=== PATIENT | female | born 1965 | race Caucasian/White ===

== ENCOUNTER 2019-12-13 10:45 | Outpatient (CLI) | payer OTHER, SELFPAY ==
--- NOTE | ~2019-12-13 | MM_ITS ---
EXAMINATION: MM screening demario BI w lito HISTORY: Screening mammogram TECHNIQUE: Craniocaudal and mediolateral oblique 3-D tomosynthesis images were obtained and synthetic 2-D images were generated. CAD analysis was submitted and interpreted. COMPARISON: Comparison to multiple prior studies sequentially, with oldest reviewed study dated 05/05. BREAST PARENCHYMAL COMPOSITION: There are scattered areas of fibroglandular density. FINDINGS: There is no evidence of suspicious mass, calcification, or architectural distortion to sugg est malignancy in either breast. There has been no suspicious interval change. IMPRESSION: 1. No mammographic evidence of malignancy. 2. Recommend routine screening mammography in one year. BI-RADS Category 1: Negative Reviewed, dictated and finalized at location A. OR CONTACT CENTRE MANAGER
== END 2019-12-13 10:46 | disposition home or self-care (01) ==
LOC: ANHIMG 10:47
PROVIDERS: PCP Internal Medicine; Visit Provider Obstetrics & Gynecology
DX: Z12.31 Encounter for screening mammogram for malignant neoplasm of breast (principal)
CPT/HCPCS: 77063; 77067

== ENCOUNTER 2020-02-15 13:53 | Outpatient (CLI) | payer OTHER, SELFPAY ==
--- NOTE | ~2020-02-15 | XR_ITS ---
XR sacroiliac joints min 3V DATE: 02/15/2020 14:55 INDICATION: Chronic low back pain TECHNIQUE: AP and bilateral oblique views COMPARISON: None FINDINGS: No fracture, dislocation, erosion or ankylosis at the sacroiliac joints. IMPRESSION: Negative Reviewed, dictated and finalized at Location A. Reviewed, dictated and finalized at location A. IMPRESSION: Negative
--- NOTE | ~2020-02-15 | XR_ITS ---
XR lumbar spine 2-3V DATE: 02/15/2020 14:55 INDICATION: Low back pain TECHNIQUE: AP, lateral, coned lateral lumbosacral views COMPARISON: 11/05/2010 MRI lumbar spine 04/05/2014 FINDINGS: Diffuse osteopenia. Normal alignment of the lumbar spine. No fracture or bone destruction. The included T11 and T12 and l umbar pedicles are intact. No spondylolisthesis. There is moderate loss of interspace height at L4-5. Remaining lumbar interspaces are relatively pres erved. The sacroiliac joints are unremarkable. IMPRESSION: Osteopenia Moderate loss of height of L4-5 interspace Reviewed, dictated and finalized at location A.
== END 2020-02-15 13:54 | disposition home or self-care (01) ==
LOC: CHSIMG 13:55
PROVIDERS: PCP Internal Medicine; Visit Provider Internal Medicine
DX: M54.5 Low back pain (principal)
CPT/HCPCS: 72100; 72202

== ENCOUNTER 2020-03-26 13:20 | Outpatient (CLI) | payer OTHER, SELFPAY ==
[2020-03-26 13:33] LABS: Hematocrit 37.9 % (35.0-49.0); Hemoglobin 12.8 g/dL (12.0-15.0); Mean Corpuscular HGB Conc 33.8 g/dL (32.0-36.0); Mean Corpuscular Volume 91.8 fL (78.0-102.0); Platelet Count Result 192 K/mm3 (150-420); Red Blood Count 4.13 M/mm3 (4.20-5.40); Red Cell Distribution Width 13.2 % (11.6-14.4); White Blood Count 3.7 K/mm3 (4.8-10.8)
[2020-03-26 13:34] LABS: Add Urine Microscopic? NO; Appearance Urine Clear (Clear); Bilirubin Urine Negative (Negative); Blood Urine Negative (Negative); Color Urine Yellow (Yellow); Glucose Urine UA Negative (Negative); Ketones Urine Negative (Negative); Leukocyte Esterase Ur Negative (Negative); Nitrate Urine Negative (Negative); Protein Urine Negative (Negative); Specific Grav Ur <= 1.005 (1.010-1.020); Urobilinogen Urine 0.2 mg/dL (0.2-1.0); pH Urine 5.5 (5.0-8.0)
[2020-03-26 13:48] LABS: Alanine Aminotransferase 34 U/L (14-59); Albumin Level 3.5 g/dL (3.4-5.0); Alkaline Phosphatase 52 U/L (46-116); Amylase 34 U/L (25-115); Anion Gap 9.4 mmol/L (7-16); Aspartate Amino Transferase 33 U/L (15-37); Bilirubin,Total 0.5 mg/dL (0.00-1.00); Blood Urea Nitrogen 6 mg/dL (7-18); Carbon Dioxide 31 mmol/L (21-32); Chloride 101 mmol/L (98-108); Estimated Glomerular Filt Rate > 60; Glucose 103 mg/dL (70-99); Lipase 97 U/L (73-393); Osmolality Calculated 283 mOsm/kg (285-295); Potassium 3.4 mmol/L (3.5-5.1); Sodium 138 mmol/L (136-145); Total Protein 6.8 g/dL (6.4-8.2)
[2020-03-26 13:53] LABS: Calcium 8.3 mg/dL (8.5-10.1)
[2020-03-26 14:14] LABS: Band Neutrophils Percent 1 % (0-6); Basophils Percent Manual 0 % (0-1); Eosinophils Absolute Manual 0.03 K/mm3 (0.02-0.5); Eosinophils Percent Manual 1 % (1-6); Lymphocytes Absolute Manual 0.88 K/mm3 (1.1-4.5); Lymphocytes Percent Manual 24 % (18-44); Monocytes Absolute Manual 0.25 K/mm3 (0.1-0.90); Monocytes Percent Manual 7 % (3-9); Neutrophils Absolute Manual 2.51 K/mm3 (1.7-7.2); Neutrophils Percent Manual 67 % (46-73); Platelet Estimate Adequate (Adequate); Total Cells Counted 100
== END 2020-03-26 13:21 | disposition home or self-care (01) ==
LOC: CHSLAB 13:22
PROVIDERS: PCP Internal Medicine; Visit Provider Internal Medicine
DX: R10.9 Unspecified abdominal pain (principal); R11.0 Nausea
CPT/HCPCS: 36415; 80053; 81003; 82150; 83690; 85025

== ENCOUNTER 2020-04-03 07:57 | Outpatient (CLI) | payer OTHER, SELFPAY ==
--- NOTE | ~2020-04-03 | US_ITS ---
EXAMINATION: US right upper quadrant DATE: 04/03/2020 08:55 INDICATION: Right upper quadrant pain TECHNIQUE: Multiple grayscale and Doppler ultrasound images of the abdomen were obtained. COMPARISON: None available FINDINGS: The head and and body of the pancreas are normal. The pancreatic tail is obscured by bowel gas. The liver is normal with normal echogenicity and echotexture. No surface nodularity. Normal hepa topetal flow in the main portal vein. The gallbladder is normal with no abnormal wall thickening, per icholecystic fluid or stones. The normal common bile duct measures 4 mm. There was no sonographic Mur phy sign. IMPRESSION: 1. Normal sonographic study of the gallbladder. Reviewed, dictated and finalized at location A.
== END 2020-04-03 07:58 | disposition home or self-care (01) ==
PROVIDERS: PCP Internal Medicine; Visit Provider Internal Medicine
DX: K30 Functional dyspepsia (principal); R10.11 Right upper quadrant pain; R11.0 Nausea
CPT/HCPCS: 76705

== ENCOUNTER → 2020-04-11 14:08 | Outpatient (CLI) | payer OTHER, SELFPAY ==
--- NOTE | ~2020-04-11 | MR_ITS ---
EXAMINATION: MR lumbar spine wo con EXAM DATE: 04/11/2020 15:03 INDICATION: Low back pain. TECHNIQUE: Multi-sequential, multiplanar MR images of the lumbar spine were obtained without contrast . Sagittal T1, T2, T2 fat saturation images. Axial T2 weighted images. Comparison is made to prior examination from 04/05/2014. FINDINGS: There is mild to moderate disc disease L4-5, mild at the other lumbar levels. 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 The conus medullaris terminates at the T12-L1 level and has normal signal intensity and morphology. The vertebral bodies are aligned in the AP dimension. There are no suspic ious marrow signal abnormalities. Level by level evaluation: T12-L1: Disc does not extend beyond the endplate margin. Facet arthropathy: None. Neural foraminal stenosis: No stenosis. Central canal stenosis: No stenosis. L1-L2: There is a mild diffuse disc bulge. Facet arthropathy: Mild. Neural foraminal stenosis: No stenosis. Central canal stenosis: No stenosis. L2-L3: There is a mild diffuse disc bulge. Facet arthropathy: Mild. Neural foraminal stenosis: No stenosis. Central canal stenosis: No stenosis. L3-L4: There is a mild diffuse disc bulge. Facet arthropathy: Mild. Neural foraminal stenosis: No stenosis. Central canal stenosis: No stenosis. L4-L5: There is a mild diffuse disc bulge superimposed moderate-sized central extrusion, inferior teresita ration. Facet arthropathy: Mild. Neural foraminal stenosis: Mild bilateral. Central canal stenosis: Mild. L5-S1: There is a mild diffuse disc bulge. Facet arthropathy: Mild. Neural foraminal stenosis: Mild bilateral. Central canal stenosis: No stenosis. Compared to 2013, disc disease, protrusion at L4-5 has developed, mild progression in overall mild bridger mbar spondylosis. IMPRESSION: Mild lumbar spondylosis. Reviewed, dictated and finalized at location A. IMPRESSION: Mild lumbar spondylosis.
== END ==
PROVIDERS: PCP Internal Medicine; Visit Provider Internal Medicine
DX: M54.5 Low back pain (principal); M47.816 Spondylosis without myelopathy or radiculopathy, lumbar region
CPT/HCPCS: 72148

== ENCOUNTER 2020-04-29 14:50 | Outpatient (RCR) | payer OTHER, SELFPAY ==
--- NOTE | 2020-04-29 15:53 | PTOPEVAL ---
Thank you for referring Patricia Cabrera to [facility]. Please review, sign, date and return this plan of care NOBLE. I agree with and certify that the following plan of care is medically necessary. Referring Physician Date Admitting Provider: Attending Provider: PHYSICIAN NOT ON STAFF Referring Provider: *PT Outpatient Evaluation Start: 04/29/20 15:00 Freq: Status: Active Protocol: Document 04/29/20 15:05 JTF (Rec: 04/29/20 15:50 [facility] [id number]) Therapy Assessment Status Assessment Status Assessment Status Evaluation Evaluation Information Problem Diagnosis lumbar spondylosis Onset 04/24/20 Additional Evaluation Detail oswestry = 22% functionally declined Subjective Information patient reports she has been Query Text:As Reported By Patient/ having pain in the back off Family and on for years. she reports she currently does not have pain. she reports she will get to a point with pain that she is unable to stand or move. she reports she is hoping to get some exercises from therapy to improve her core strength and hel prevent severity/frequency of future back pain. she reports she has had an mri of the lumbar spine with results of mild lumbar spondylosis. she reports she never has pain down the legs. Prior Level of Function Comments Additional Prior Level of Function she reports she has pain that Comments has been on and off for years, but reports she is having more frequent bout of severe pain. she reports she reports has freqently had her bouts of increased pain with bending and twisting motions. Pain Assessment Timing of Pain Assessment Timing of Pain Assessment Assessment Pain Scale Pain Scale Used Numeric (1 - 10) Self Report Pain Assessment Lower Back Reported Pain Level 0 Lowest Pain Intensity 0 Greatest Pain Intensity 0 Pain Aggravating Factors Exercise/Activity,Lifting Pain Score Pain Score 0: Self Report Cervical and Lumbar ROM Lumbar ROM Lumbar Flexion Active Ankle Query Text:Hands to:
--- NOTE | 2020-07-25 11:00 | PCPTNOTE ---
07/25/20 - patient has been called and reports they would like to end therapy. at this time, their progress towards goals will be taken from the most recent evaluation/note. RobertTF
== END 2020-05-14 15:25 | disposition home or self-care (01) ==
LOC: CHSPT 14:50
PROVIDERS: PCP Internal Medicine
DX: M47.816 Spondylosis without myelopathy or radiculopathy, lumbar region (principal)
CPT/HCPCS: 97110; 97161

== ENCOUNTER 2020-08-22 14:49 | Outpatient (CLI) | payer OTHER, SELFPAY ==
[2020-08-22] MEDS: ZOLEDRONIC ACID 5 MG/100 ML 100 ML 400 MG IVPB (15:23)
== END 2020-08-22 14:50 | disposition home or self-care (01) ==
LOC: CHSTREATRM 14:51
PROVIDERS: PCP Internal Medicine; Visit Provider Internal Medicine
DX: M81.0 Age-related osteoporosis without current pathological fracture (principal)
CPT/HCPCS: 96365; J3489

== ENCOUNTER 2021-01-27 15:35 | Outpatient (CLI) | payer OTHER, SELFPAY ==
--- NOTE | ~2021-01-27 | MM_ITS ---
EXAMINATION: MM screening demario BI w lito HISTORY: Screening TECHNIQUE: Craniocaudal and mediolateral oblique 3-D tomosynthesis images were obtained and synthetic 2-D images were generated. CAD analysis was submitted and interpreted. COMPARISON: Comparison to multiple prior studies sequentially, with oldest reviewed study dated 12/2015. BREAST PARENCHYMAL COMPOSITION: Breast composed of scattered areas of fibroglandular density FINDINGS: There is developing focal asymmetry in the upper outer quadrant of the right breast anterio rly. The left breast is stable without evidence for malignancy. IMPRESSION: 1. Developing right breast asymmetry. 2. Additional mammographic views and possible breast ultrasound are recommended. BI-RADS Category 0: Incomplete: Needs additional imaging evaluation. Reviewed, dictated and finalized at location A. IMPRESSION: 1. Developing right breast asymmetry. 2. Additional mammographic views and possible breast ultrasound are recommended . BI-RADS Category 0: Incomplete: Needs additional imaging evaluation.
== END 2021-01-27 15:36 | disposition home or self-care (01) ==
LOC: ANHIMG 15:37
PROVIDERS: PCP Internal Medicine; Visit Provider Obstetrics & Gynecology
DX: Z12.31 Encounter for screening mammogram for malignant neoplasm of breast (principal); R92.8 Other abnormal and inconclusive findings on diagnostic imaging of breast
CPT/HCPCS: 77063; 77067

== ENCOUNTER 2021-01-30 10:16 | Outpatient (CLI) | payer OTHER, SELFPAY ==
--- NOTE | ~2021-01-30 | MMUS_ITS ---
EXAMINATION: MM diagnostic mammo unilat RT, US breast RT limited HISTORY: Follow-up right breast asymmetry TECHNIQUE: Additional 3-D tomosynthesis images of the right breast were performed and synthetic 2-D i mages were generated. CAD analysis was submitted and interpreted. High resolution Limited right breas t ultrasound was performed. COMPARISON: 01/27/2021 BREAST PARENCHYMAL COMPOSITION: Breast composed of scattered areas of fibroglandular density. FINDINGS: MAMMOGRAPHIC FINDINGS: Focal asymmetry laterally in the right breast is less dense with spot part compression views. No disc rete mass, architectural distortion or suspicious calcifications are identified to suggest malignancy . ULTRASOUND: Limited right breast ultrasound: Normal heterogeneous echotexture without focal solid or cystic mass. There are mildly prominent ducts of the right breast. IMPRESSION: 1. No evidence for malignancy in the right breast. 2. Routine yearly screening mammogram and regular clinical breast examination are recommended. BI-RADS Category 1: Negative Reviewed, dictated and finalized at location A. IMPRESSION: 1. No evidence for malignancy in the right breast. 2. Routine yearly screening mammogram and regular clinical breast examination a re recommended. BI-RADS Category 1: Negative
== END 2021-01-30 10:17 | disposition home or self-care (01) ==
LOC: CHSIMG 10:19
PROVIDERS: PCP Internal Medicine; Visit Provider Obstetrics & Gynecology
DX: R92.8 Other abnormal and inconclusive findings on diagnostic imaging of breast (principal)
CPT/HCPCS: 76642; 77065

== ENCOUNTER → 2021-08-03 07:44 | Outpatient (CLI) | payer OTHER, SELFPAY ==
--- NOTE | ~2021-08-03 | MR_ITS ---
EXAMINATION: MR hip RT wo con DATE: 08/03/2021 08:45 INDICATION: Right hip pain. Enlarging simple on the right buttock. TECHNIQUE: Magnetic resonance imaging (MRI) of the right hip was performed without intravenous contr ast. Sequences included full-field axial PD-weighted FS FSE and T1-weighted FSE, coronal of the pelvi s with PD-weighted FS FSE, small field of view of the right hip with axial PD-weighted FS FSE, sagit mario alberto PD-weighted FS FSE and coronal PD weighted FS FSE. Additional radial T1-weighted FGR oriented ort hogonal to the acetabular rim were obtained for evaluation of the labrum. COMPARISON: None FINDINGS: Bones/labrum/cartilage: Alignment is normal. No fracture, avascular necrosis or pathologic marrow replacing process. Mild ri ght hip osteoarthritis with mild partial-thickness cartilage loss with smooth chondral surface result ing in mild nonuniform joint space narrowing anterosuperiorly and posteriorly. Mild degeneration of t he posterior superior glenoid labrum which demonstrates mild amorphous increased signal without discr ete linear fluid signal intensity tear plane. Moderate disc height loss at L4-L5 and mild lower lumba r facet osteoarthritis. Fluid: Symmetric physiologic amount of fluid within both hip joints. Soft tissues: Normal and symmetric muscle bulk and signal in the pelvis and visualized proximal thighs. Mild tendin opathy without discrete tear at the distal right gluteus minimus tendon. The iliopsoas tendons, proxi mal hamstring tendons and remaining bilateral gluteal tendons are normal. Limited evaluation of visce ral organs of the pelvis is unremarkable. No pathologically enlarged pelvic/inguinal lymphadenopathy . There is an approximately 2.2 x 1.2 x 1.8 cm region of intermediate T1 and increased T2 signal with spiculated margins in the superficial subcutaneous fat at the right buttock. There is asymmetric dec rease in the amount of subcutaneous fat at this location relative to the contralateral left buttock a long with overlying mild improvement of the overlying skin surface corresponding to the provided clin ical history. IMPRESSION: 1. 2.2 x 1.2 x 1.8 cm region of soft tissue with spiculated margins replacing the superficial subcuta neous fat at the region of concern. Suspected this represents scarring related to localized fat necro sis although neoplasm either benign or malignant cannot be excluded and would consider biopsy for def initive determination. 2. Mild right hip osteoarthritis with mild degeneration at the posterior superior right acetabular la hugo. 3. Mild right gluteus minimus tendinopathy without discrete tear. 4. Mild to moderate lower lumbar spondylosis. Reviewed, dictated and finalized at location A. IMPRESSION: 1. 2.2 x 1.2 x 1.8 cm region of soft tissue with spiculated margins replacing t he superficial subcutaneous fat at the region of concern. Suspected this repres ents scarring related to localized fat necrosis although neoplasm either benign or malignant cannot be excluded and would consider biopsy for definitive deter mination. 2. Mild right hip osteoarthritis with mild degeneration at the posterior superi or right acetabular labrum. 3. Mild right gluteus minimus tendinopathy without discrete tear. 4. Mild to moderate lower lumbar spondylosis.
== END ==
PROVIDERS: PCP Internal Medicine; Visit Provider Internal Medicine
DX: M79.89 Other specified soft tissue disorders (principal); M47.896 Other spondylosis, lumbar region; M16.11 Unilateral primary osteoarthritis, right hip
CPT/HCPCS: 73721

== ENCOUNTER 2021-09-18 07:44 | Outpatient (CLI) | payer OTHER, SELFPAY ==
[2021-09-18 10:04] LABS: SARS-CoV-2 RNA PCR Negative (Negative)
== END 2021-09-18 07:45 | disposition home or self-care (01) ==
LOC: CHSLAB 07:50
DX: Z01.812 Encounter for preprocedural laboratory examination (principal); Z20.822 Contact with and (suspected) exposure to COVID-19
CPT/HCPCS: C9803; U0003; U0005

== ENCOUNTER 2022-02-02 10:06 | Outpatient (CLI) | payer OTHER, SELFPAY ==
--- NOTE | ~2022-02-02 | MM_ITS ---
EXAMINATION: MM screening demario BI w lito HISTORY: Screening mammogram TECHNIQUE: Craniocaudal and mediolateral oblique 3-D tomosynthesis images were obtained and synthetic 2-D images were generated. CAD analysis was submitted and interpreted. COMPARISON: January 30, 2021 diagnostic right mammogram and limited right breast ultrasound January 27, 2021 bilateral screening mammogram December 13, 2019 bilateral screening mammogram December 07, 2018 bilateral screening mammogram BREAST PARENCHYMAL COMPOSITION: There are scattered areas of fibroglandular density. FINDINGS: There is no evidence of suspicious mass, calcification, or architectural distortion to sugg est malignancy in either breast. There has been no suspicious interval change. IMPRESSION: 1. No mammographic evidence of malignancy. 2. Recommend routine screening mammography in one year. BI-RADS Category 1: Negative Reviewed, dictated and finalized at location A.
--- NOTE | ~2022-02-02 | DEXA_ITS ---
Bone Density Report Name: VANIA WEBB Age: 56 Sex: Female Ethnicity: White Date of : 1965 Indication: postmenopausal; screening for osteoporosis; height loss; Referring Provider: Pascual Prince Study: Bone densitometry was performed. Exam Date: February 02, 2022 Accession number: [id number] Bone Density: Region BMD T-score Z-score Classification AP Spine(L1-L4) 0.815 -2.1 -0.8 Osteopenia Femoral Neck (Left) 0.577 -2.4 -1.2 Osteopenia Total Hip (Left) 0.694 -2.0 -1.2 Osteopenia Femoral Neck (Right) 0.607 -2.2 -1.0 Osteopenia Total Hip (Right) 0.736 -1.7 -0.8 Osteopenia Femoral Neck Mean 0.592 -2.3 -1.1 Osteopenia Total Hip Mean 0.715 -1.9 -1.0 Osteopenia World Health Organization criteria for BMD impression classify patients as: Normal (T-score at or above -1.0), Osteopenia (T-score between -1.0 and -2.5), or Osteoporosis (T-score at or below -2.5). 10-year Fracture Risk(1): Major Osteoporotic Fracture 9.2% Hip Fracture 1.6% Reported Risk Factors: [place] (), Neck BMD=0.577, BMI=20.6 (1) FRAX(R) Version 3.08. Fracture probability calculated for an untreated patient. Fracture probability may be lower if the patient has received treatment. Clinical Information Provided by Patient: Patient maximum height was 66 Menopause Age: 48 Drinks caffeinated beverages Onset of menses at age 9 Number of children 3 Impression: The patient has low bone mass, based on the Left Femoral Neck T-score. Discussion: BONE DENSITY IS LOW AT ONE OR MORE SKELETAL SITES. This patient's lowest T-score is low at one or more skeletal sites. It meets the World Health Organization's (WHO) criteria for ?low bone mass? (T-score between -1.0 and -2.5). The patient's 10-year risk of fracture as calculated by FRAX is less than the threshold where pharmacological therapy is recommended by the National Osteoporosis Foundation (NOF). However, all treatment decisions require clinical judgment and consideration of individual patient factors, including patient preferences, comorbidities, previous drug use, risk factors not captured in the FRAX model (e.g., frailty, falls, vitamin D deficiency, increased bone turnover, interval significant decline in bone density) and possible under or overestimation of fracture risk by FRAX. The patient should follow a healthful lifestyle (good nutrition with adequate calcium and vitamin D, and appropriate weight-bearing exercise). Follow-Up: Consider repeating this study in 2 to 3 years to reassess this patient's status, or sooner if there is some new clinical indication. Reported by: Dr. Rishabh Morris on 02/02/2022 10:43:00 AM. Reviewed, dictated and finalized at location A. [facility]
== END 2022-02-02 10:07 | disposition home or self-care (01) ==
LOC: CHSIMG 10:09
PROVIDERS: PCP Internal Medicine; Visit Provider Obstetrics & Gynecology
DX: Z12.31 Encounter for screening mammogram for malignant neoplasm of breast (principal); M81.0 Age-related osteoporosis without current pathological fracture
CPT/HCPCS: 77063; 77067; 77080

== ENCOUNTER 2022-04-30 09:17 | Outpatient (CLI) | payer OTHER, SELFPAY ==
--- NOTE | ~2022-04-30 | MR_ITS ---
EXAMINATION: MR lumbar spine wo con DATE: 04/30/2022 10:02 INDICATION: Lumbar radiculopathy TECHNIQUE: Magnetic resonance imaging (MRI) of the lumbar spine was performed without intravenous con trast. Sequences included sagittal T2-weighted FSE, sagittal T2-weighted FS FSE, sagittal T1-weighted FSE, and axial T2-weighted FSE. COMPARISON: 04/11/20 FINDINGS: 2 mm retrolisthesis L4 on L5 and one-2 mm retrolisthesis L2 on L3 and L3 on L4. Vertebral body height s are normal. Normal marrow signal. Moderate disc height loss at L4-L5. Mild disc height loss at L3- L4 and L5-S1. Minimal disc height loss at L2-L3. The conus medullaris terminates at L1. There is norm al signal in the caudal spinal cord. Paravertebral soft tissues are unremarkable. The following disc levels are specifically discussed: T12-L1: The disc does not extend beyond the endplate margin. There is minimal bilateral facet joint o steoarthritis. There is no neural foraminal stenosis. There is no central canal stenosis. L1-L2: Disc is mildly bulging. There is mild bilateral facet joint osteoarthritis. There is no neural foraminal stenosis. There is minimal central canal stenosis. L2-L3: Disc is mildly bulging with superimposed annular fissure and small central disc extrusion exte nding 6 mm cephalad to the level of the inferior endplate of L1 There is mild right and minimal left facet joint osteoarthritis. There is no neural foraminal stenosis. There is minimal central canal li nosis. L3-L4: Disc is mildly bulging with annular fissure There is minimal bilateral facet joint osteoarthri tis. There is no neural foraminal stenosis. There is minimal central canal stenosis. L4-L5: Disc is bulging with annular fissure and very small central disc extrusion with disc material extending 3 mm caudal to the level of the superior endplate of L5. This significantly decreased since the prior study at which time the disc material extending up to 1.3 similar caudal to the level of t he superior endplate of L5 There is mild bilateral facet joint osteoarthritis. There is mild bilatera l neural foraminal stenosis. There is minimal central canal stenosis. L5-S1: Disc is mildly bulging. There is mild bilateral facet joint osteoarthritis. There is mild bila teral neural foraminal stenosis. There is no central canal stenosis. IMPRESSION: 1. Mild to moderate spondylosis without appreciable change aside from significant interval decrease i n size of a now very small residual central disc extrusion at L4-L5. Reviewed, dictated and finalized at location B. IMPRESSION: 1. Mild to moderate spondylosis without appreciable change aside from significa nt interval decrease in size of a now very small residual central disc extrusio n at L4-L5.
== END 2022-04-30 09:18 | disposition home or self-care (01) ==
PROVIDERS: PCP Internal Medicine; Visit Provider Internal Medicine
DX: M47.26 Other spondylosis with radiculopathy, lumbar region (principal)
CPT/HCPCS: 72148

== ENCOUNTER 2022-09-16 09:56 | Outpatient (CLI) | payer OTHER, SELFPAY ==
--- NOTE | 2022-09-16 10:06 | ECG_ITS ---
Measurements Intervals Fate Rate: 69 P: 59 MI: 161 QRS: 56 QRSD: 87 T: 56 QT: 372 QTc: 399 Interpretive Statements SINUS RHYTHM NORMAL ECG NO PREVIOUS ECG AVAILABLE FOR COMPARISON Electronically Signed On 09-16-2022 11:18:59 [facility] [employer] [employer] by Otis Reis M.D.
== END 2022-09-16 09:57 | disposition home or self-care (01) ==
LOC: CHSCARD 09:59
PROVIDERS: PCP Internal Medicine
DX: Z01.810 Encounter for preprocedural cardiovascular examination (principal); Z41.1 Encounter for cosmetic surgery
CPT/HCPCS: 93005

== ENCOUNTER → 2022-11-01 11:02 | Outpatient (CLI) | payer OTHER, SELFPAY ==
--- NOTE | ~2022-11-01 | MR_ITS ---
MRI of the sacroiliac joints CLINICAL HISTORY: Low back pain TECHNIQUE: Sagittal proton-density fat-sat images, coronal T1-weighted, T2-weighted, and T2 fat-sat i mages, and axial T1-weighted and T2 fat-sat images were acquired. FINDINGS: No fracture or bone marrow edema identified. Bone marrow signals are unremarkable. SI joint s are unremarkable. No degenerative changes identified. No erosive or inflammatory change identified. No joint effusion. Visualized musculature appears unremarkable. There is small focal areas subcutaneous soft tissue caroline a at the right posterior pelvic region (series 9 image 21), nonspecific.. No fluid collection or soft tissue mass identified. IMPRESSION: Unremarkable SI joints. Small focal area of nonspecific subcutaneous soft tissue edema at the right posterior pelvis, as deta iled above. Overall, this is of doubtful clinical significance. Correlate with physical exam. Reviewed, dictated and finalized at [facility]. ICATION DEVELOPMENT DIRECTOR IMPRESSION: Unremarkable SI joints. Small focal area of nonspecific subcutaneous soft tissue edema at the right pos terior pelvis, as detailed above. Overall, this is of doubtful clinical signifi cance. Correlate with physical exam.
== END ==
PROVIDERS: PCP Internal Medicine
DX: M54.50 Low back pain, unspecified (principal)
CPT/HCPCS: 72197

== ENCOUNTER 2023-06-28 13:42 | Outpatient (CLI) | payer OTHER, SELFPAY ==
--- NOTE | ~2023-06-28 | MM_ITS ---
EXAMINATION: MM screening demario BI w lito HISTORY: Screening mammogram TECHNIQUE: Craniocaudal and mediolateral oblique 3-D tomosynthesis images were obtained and synthetic 2-D images were generated. CAD analysis was submitted and interpreted. COMPARISON: February 02, 2022 bilateral screening mammogram January 30, 2021 diagnostic right mammogram and limited right breast ultrasound January 27, 2021 bilateral screening mammogram December 13, 2019 bilateral screening mammogram BREAST PARENCHYMAL COMPOSITION: There are scattered areas of fibroglandular density. FINDINGS: There is no evidence of suspicious mass, calcification, or architectural distortion to sugg est malignancy in either breast. There has been no suspicious interval change. IMPRESSION: 1. No mammographic evidence of malignancy. 2. Recommend routine screening mammography in one year. BI-RADS Category 1: Negative Reviewed, dictated and finalized at location A.
== END 2023-06-28 13:43 | disposition home or self-care (01) ==
LOC: CHSIMG 13:43
PROVIDERS: PCP Internal Medicine; Visit Provider Obstetrics & Gynecology
DX: Z12.31 Encounter for screening mammogram for malignant neoplasm of breast (principal)
CPT/HCPCS: 77063; 77067

== ENCOUNTER 2023-09-16 12:45 | Outpatient (CLI) | payer OTHER, SELFPAY ==
--- NOTE | ~2023-09-16 | XR_ITS ---
XR hip BI 2V w AP pelvis DATE: 09/16/2023 13:21 INDICATION: Chronic bilateral hip pain TECHNIQUE: AP pelvis. AP and lateral views of both hips COMPARISON: 02/25/2026 joints 11/01/2022 MR sacroiliac joints FINDINGS: Mild bilateral hip joint space narrowing. The pubic symphysis and sacral iliac joints are intact. No pelvic fracture or bone destruction. No fracture, dislocation, avascular necrosis or bone destruction of either hip is detected. IMPRESSION: Mild bilateral hip osteoarthritis Reviewed, dictated and finalized at location A. ICAL APPEALS AUDITOR
== END 2023-09-16 12:46 | disposition home or self-care (01) ==
PROVIDERS: PCP Internal Medicine; Visit Provider Internal Medicine
DX: M54.50 Low back pain, unspecified (principal); M25.552 Pain in left hip; M25.551 Pain in right hip; M16.0 Bilateral primary osteoarthritis of hip
CPT/HCPCS: 73521

== ENCOUNTER 2024-08-22 13:19 | Outpatient (CLI) | payer OTHER, SELFPAY ==
--- NOTE | ~2024-08-22 | DEXA_ITS ---
Bone Density Report Name: VANIA WEBB Age: 59 Sex: Female Ethnicity: White Date of : 1965 Indication: osteopenia; height loss; Referring Provider: Pascual Prince Study: Bone densitometry was performed. Exam Date: August 22, 2024 Accession number: [id number] Bone Density: Region BMD T-score Z-score Classification AP Spine(L1-L4) 0.796 -2.3 -0.8 Osteopenia Femoral Neck (Left) 0.584 -2.4 -1.1 Osteopenia Total Hip (Left) 0.681 -2.1 -1.1 Osteopenia Femoral Neck (Right) 0.634 -1.9 -0.6 Osteopenia Total Hip (Right) 0.702 -2.0 -1.0 Osteopenia Femoral Neck Mean 0.609 -2.2 -0.8 Osteopenia Total Hip Mean 0.692 -2.1 -1.0 Osteopenia World Health Organization criteria for BMD impression classify patients as: Normal (T-score at or above -1.0), Osteopenia (T-score between -1.0 and -2.5), or Osteoporosis (T-score at or below -2.5). 10-year Fracture Risk(1): Major Osteoporotic Fracture 9.6% Hip Fracture 1.8% Reported Risk Factors: [place] (), Neck BMD=0.584, BMI=19.1 (1) FRAX(R) Version 3.08. Fracture probability calculated for an untreated patient. Fracture probability may be lower if the patient has received treatment. Previous Exams: Region Exam Age BMD T-score BMD Change BMD Change Date g/cm2 vs Baseline vs Previous AP Spine (L1-L4) 08/22/2024 59 0.796 -2.3 -0.019 (-2.4%) -0.019 (-2.4%) 02/02/2022 56 0.815 -2.1 Total Hip(Left) 08/22/2024 59 0.681 -2.1 -0.013 (-1.9%) -0.013 (-1.9%) 02/02/2022 56 0.694 -2.0 Total Hip(Right) 08/22/2024 59 0.702 -2.0 -0.034 (-4.6%) -0.034 (-4.6%) 02/02/2022 56 0.736 -1.7 *Denotes significance at 95% confidence level, LSC for AP Spine = 0.022 g/cm2, LSC for Total Hip = 0.027 g/cm2 Clinical Information Provided by Patient: Patient maximum height was 66 Menopause Age: 48 Drinks caffeinated beverages Onset of menses at age 10 Number of children 3 Impression: The patient has low bone mass, based on the Left Femoral Neck T-score. The BMD for the Total Hip(Right) decreased, changing by -4.6% since the last DXA exam. Discussion: BONE DENSITY IS LOW AT ONE OR MORE SKELETAL SITES. This patient's lowest T-score is low at one or more skeletal sites. It meets the World Health Organization's (WHO) criteria for ?low bone mass? (T-score between -1.0 and -2.5). The patient's 10-year risk of fracture as calculated by FRAX is less than the threshold where pharmacological therapy is recommended by the National Osteoporosis Foundation (NOF). However, all treatment decisions require clinical judgment and consideration of individual patient factors, including patient preferences, comorbidities, previous drug use, risk factors not captured in the FRAX model (e.g., frailty, falls, vitamin D deficiency, increased bone turnover, interval significant decline in bone density) and possible under or overestimation of fracture risk by FRAX. The patient should follow a healthful lifestyle (good nutrition with adequate calcium and vitamin D, and appropriate weight-bearing exercise). Follow-Up: Consider repeating this study in 2 years to reassess this patient's status, or sooner if there is some new clinical indication. Reported by: WILLIS on 08/24/2024 12:46:00 PM. Reviewed, dictated and finalized at location A.
--- NOTE | ~2024-08-22 | MM_ITS ---
EXAMINATION: MM screening [facility] BI w lito HISTORY: Screening TECHNIQUE: Craniocaudal and mediolateral oblique 3-D tomosynthesis images were obtained and synthetic 2-D images were generated. CAD analysis was submitted and interpreted. COMPARISON: Comparison to multiple prior studies sequentially, with oldest reviewed study dated 12/07. BREAST PARENCHYMAL COMPOSITION: Not dense: There are scattered areas of fibroglandular density. FINDINGS: There is no evidence of suspicious mass, calcification, or architectural distortion to sugg est malignancy in either breast. There has been no suspicious interval change. IMPRESSION: 1. No mammographic evidence of malignancy. 2. Recommend routine screening mammography in one year. BI-RADS Category 1: Negative Reviewed, dictated and finalized at location B. CE SERVICE TECHNICIAN
== END 2024-08-22 13:20 | disposition home or self-care (01) ==
LOC: CHSIMG 13:20
PROVIDERS: PCP Internal Medicine; Visit Provider Internal Medicine
DX: Z12.31 Encounter for screening mammogram for malignant neoplasm of breast (principal); Z78.0 Asymptomatic menopausal state; M85.89 Other specified disorders of bone density and structure, multiple sites
CPT/HCPCS: 77063; 77067; 77080

== ENCOUNTER 2024-09-03 11:13 | Outpatient (CLI) | payer OTHER, SELFPAY ==
--- NOTE | ~2024-09-03 | XR_ITS ---
XR hand RT min 3V Ordering provider: Patel Wolfe MD History: . R Hand Painx 1 month after jamming against door . Comparison: None. FINDINGS: BONES: No acute fracture or dislocation. Periarticular osteopenia. JOINT SPACES: Osteoarthritic changes between the scaphoid and the trapezium bone. Mild osteoarthritic changes of the first carpometacarpal joint. SOFT TISSUES: Normal. IMPRESSION: No acute osseous abnormality right hand. Reviewed, dictated and finalized at location A. D CARE DIRECTOR
== END 2024-09-03 11:14 | disposition home or self-care (01) ==
LOC: CHSIMG 11:15
PROVIDERS: PCP Internal Medicine; Visit Provider Internal Medicine
DX: M79.641 Pain in right hand (principal)
CPT/HCPCS: 73130

== ENCOUNTER 2024-09-17 09:26 | Outpatient (CLI) | payer OTHER, SELFPAY ==
[2024-09-17 09:37] VITALS: BP 117/68; PULSE 72; RESP 14; TEMP 36.4; O2SAT 99; BMI 19.1
[2024-09-17] MEDS: ZOLEDRONIC ACID 5 MG/100 ML 100 ML 400 MG IVPB (09:50)
--- NOTE | 2024-09-17 10:09 | PC.NURSE ---
Patient tolerated Reclast infusion well. see MAR/patient care notes.
== END 2024-09-17 09:27 | disposition home or self-care (01) ==
PROVIDERS: PCP Internal Medicine; Visit Provider Internal Medicine
DX: M81.0 Age-related osteoporosis without current pathological fracture (principal)
CPT/HCPCS: 96374; J3489

== ENCOUNTER 2025-08-26 13:33 | Outpatient (CLI) | payer OTHER, SELFPAY ==
--- NOTE | ~2025-08-26 | DEXA_ITS ---
Bone Density Report Name: VANIA WEBB Age: 60 Sex: Female Ethnicity: White Date of : 1965 Indication: postmenopausal; screening for osteoporosis; height loss; Referring Provider: Pascual Prince Study: Bone densitometry was performed. Exam Date: August 26, 2025 Accession number: [id number] Bone Density: Region BMD T-score Z-score Classification AP Spine(L1-L4) 0.795 -2.3 -0.7 Osteopenia Femoral Neck (Left) 0.569 -2.5 -1.1 Osteoporosis Total Hip (Left) 0.730 -1.7 -0.7 Osteopenia Femoral Neck (Right) 0.597 -2.3 -0.9 Osteopenia Total Hip (Right) 0.767 -1.4 -0.4 Osteopenia Femoral Neck Mean 0.583 -2.4 -1.0 Osteopenia Total Hip Mean 0.748 -1.6 -0.5 Osteopenia World Health Organization criteria for BMD impression classify patients as: Normal (T-score at or above -1.0), Osteopenia (T-score between -1.0 and -2.5), or Osteoporosis (T-score at or below -2.5). 10-year Fracture Risk: FRAX not reported because: Some T-score for Spine Total or Hip Total or Femoral Neck at or below -2.5 Clinical Information Provided by Patient: Patient maximum height was 66 Menopause Age: 48 Does not regularly consume dairy products Drinks caffeinated beverages Onset of menses at age 9 Number of children 3 Impression: The patient has osteoporosis, based on the Left Femoral Neck T-score. Discussion: INCREASED RISK OF FRACTURE. BONE DENSITY IS UNDESIRABLY LOW AT ONE OR MORE SKELETAL SITES, CONSISTENT WITH POSTMENOPAUSAL OSTEOPOROSIS. This patient's lowest T-score meets the World Health Organization's (WHO) criteria for osteoporosis at one or more sites (T-score -2.5 or below). In untreated patients, the risk of osteoporotic fracture increases approximately two-fold for each 1.0 SD decrease in T-score. Low bone density is not the only risk factor for fracture; also consider factors such as patient's age, frailty or poor health, risk of falling, risk of injury, previous osteoporotic fracture, family history of osteoporosis, cigarette smoking, low body weight, etc. Not everyone with low bone mineral density has osteoporosis; osteomalacia and other metabolic bone disorders should also be considered. Patients who have osteoporosis should be evaluated for specific diseases and conditions (secondary causes) that may cause or contribute to bone loss. The [place] [employer] Endocrinologists (AACE) and National Osteoporosis Foundation (NOF) recommend pharmacologic intervention for all postmenopausal women whose T-score is in this range. The patient should follow a healthful lifestyle (good nutrition with adequate calcium and vitamin D, and appropriate weight-bearing exercise). Follow-Up: Consider a repeat BMD and Vertebral Fracture Assessment (VFA) exam in 2 years or sooner if medically necessary, to reassess this patient's status. Reported by: WILLIS on 08/26/2025 2:06:00 PM. Reviewed, dictated and finalized at location A.
--- NOTE | ~2025-08-26 | MM_ITS ---
EXAMINATION: MM screening [facility] BI w lito HISTORY: Screening TECHNIQUE: Craniocaudal and mediolateral oblique 3-D tomosynthesis images were obtained and synthetic 2-D images were generated. CAD analysis was submitted and interpreted. COMPARISON: Comparison to multiple prior studies sequentially, with oldest reviewed study dated 12/13/2019. BREAST PARENCHYMAL COMPOSITION: Not dense: There are scattered areas of fibroglandular density. FINDINGS: There is no evidence of suspicious mass, calcification, or architectural distortion to suggest malignancy in either breast. There has been no suspicious interval change. IMPRESSION: 1. No mammographic evidence of malignancy. 2. Recommend routine screening mammography in one year. BI-RADS Category 1: Negative Reviewed, dictated and finalized at location B. NESS NURSE RN
--- OUTSIDE RECORDS SUMMARY | 2025-08-26 13:44 | XMS_ITS | Clinical Summary ---
Author Organization [facility] Address [address] [place] [id number] Care Team Providers Care Offset Press Assistant Name Role Phone Patel Wolfe MD Primary Care Provider [phone] Allergies No known active allergies Medications LORazepam (ATIVAN) 2 mg tabletIndicatio ns:sleep/anxiet y Take 0.5 tablets (1 mg total) by mouth nightly 1 Active MULTIVITAMIN ORAL Take 1 tablet by mouth 2 (two) times a day Active naproxen sodium 220 mg capsule Take 220 mg by mouth 2 (two) times a day as needed (pain) for up to 20 doses 20 capsule 1 Active Additional Information Patient not taking.Reported on 11/17/2023 Active Problems Problem Noted Date Diagnosed Date Localized superficial swelling, mass, or lump Overview (09/07/2021): Added automatically from request for surgery [id number] Neutropenia 11/20/2015 Surgical History Surgery Date Site/Laterality Comments VEIN LIGATION 10/17/1992 - 10/16/1993 ACHILLES TENDON REPAIR 10/17/1995 - 10/16/1996 Right ENDOMETRIAL ABLATION 10/17/2009 - 10/16/2010 Medical History Medical History Date Comments PONV (postoperative nausea and vomiting) nausea only; IV antiemetics work well Family History Medical History Relation Name Comments Lung disease Father Arthritis Mother Anesthesia problems Neg Hx Relation Name Status Comments Father Mother Social History Tobacco Use Types Packs/Day Years Used Date Smoking Tobacco: Never Smokeless Tobacco: Never AUDIT-C Answer Date Recorded Q1: How often do you have a drink containing alc ohol? 2-4 times a month 09/16/2021 Q2: How many drinks containi ng alcohol do you have on a typical day when you are drinking? 1 or 2 09/16/2021 Q3: How often do you have si x or more drinks on one occasion? Never 09/16/2021 Comments No Sex and Gender Information Value Date Recorded Sex Assigned at Not on file Legal Sex Female 6:06 AM SAWYER HELPER Gender Identity Not on file Sexual Orientation Not on file Last Filed Vital Signs Vital Sign Reading Time Taken Comments Blood Pressure 118/75 09/22/2021 10:10 AM SAWYER HELPER Pulse 71 09/22/2021 10:10 AM SAWYER HELPER Temperature 36.2 C (97.2 F) 09/22/2021 10:30 AM SAWYER HELPER Respiratory Rate 16 09/22/2021 10:10 AM SAWYER HELPER Oxygen Saturation 97% 09/22/2021 10:10 AM SAWYER HELPER Inhaled Oxygen Concentration - - Weight 52.2 kg (115 lb) 09/23/2023 6:19 AM SAWYER HELPER Height 165.1 cm (5' 5) 09/23/2023 6:19 AM SAWYER HELPER Body Mass Index 19.14 09/23/2023 6:19 AM SAWYER HELPER Plan of Treatment Health Maintenance Due Date Last Done Comments Breast Cancer Screening-Mammogram 1965 Cervical Cancer Screening 1965 Colon Cancer Screening-Colonoscopy 1965 Depression Screening 1965 Hepatitis C Screening 1965 Hepatitis B Screening 1981 Regular Well Visit/Exam 18-64 1981 Zoster Vaccine (1 of 2) 2013 DTaP/Tdap/Td Vaccine (2 - Td or Tdap) 05/29/2022 05/29/2012 Influenza Vaccine (#1) 2025 , 08/15/2020, 08/07/2019, Additional history exists Pneumococcal vaccine <65 Aged Out 07/28/2016, 06/0 02/2015 No longer eligible based on patient's age to complete this topic Insurance [facility] Care Teams Offset Press Assistant Relationship Specialty Start Date End Date Patel Wolfe MD [address] [place] [address] PCP - General Internal Medicine 08/04/21
--- OUTSIDE RECORDS SUMMARY | 2025-08-26 13:44 | XMS_ITS | Clinical Summary ---
Author Organization [facility] Address [facility] [place] [address] Care Team Providers Care Soap Worker Name Role Phone Unavailable Primary Care Provider Unavailabl e Social History Tobacco Use Types Packs/Day Years Used Date Smoking Tobacco: Never Assessed Comments Unknown Sex and Gender Information Value Date Recorded Sex Assigned at Not on file Legal Sex Female 2:41 PM CDT Gender Identity Not on file Sexual Orientation Not on file Plan of Treatment Health Maintenance Due Date Last Done Comments Cervical Cancer Screening Pa p Smear (Age 30 to 64) Every 3 Years 1965 Colorectal Cancer Screening Colonoscopy (10 Years) 1965 Annual Physical 1966 Hepatitis C 1981 DTaP, Tdap and Td Vaccines ( 1 - Tdap) 1982 Cervical Cancer Screening Pa p with HPV Testing (Age 30 to 64) Every 5 Years 1993 Cervical Cancer Screening with HPV 1993 Mammogram Screening 2003 Pneumococcal Vaccine: 50+ Ye ars (1 of 1 - PCV) 2013 Zoster Vaccines (1 of 2) 2013 COVID-19 Vaccine ( - 2024-2 6 season) 2025 Influenza Adult (#1) 2025 RSV Immunization or 60+ Years (1 - 1-dose 75+ series) 2038 Hepatitis A Vaccines Aged Out No long er eligible based on patient's age to complete this topic Meningococcal B Vaccine Aged Out No l onger eligible based on patient's age to complete this topic Meningococcal Vaccine Aged Out No margareth debra eligible based on patient's age to complete this topic RSV Immunizations Under 20 Months Aged Out No longer eligible based on patient's age to complete this topic Insurance [facility]
== END 2025-08-26 13:34 | disposition home or self-care (01) ==
LOC: CHSIMG 13:35
PROVIDERS: PCP Internal Medicine; Visit Provider Obstetrics & Gynecology
DX: Z12.31 Encounter for screening mammogram for malignant neoplasm of breast (principal); Z78.0 Asymptomatic menopausal state; M85.89 Other specified disorders of bone density and structure, multiple sites; M81.0 Age-related osteoporosis without current pathological fracture
CPT/HCPCS: 77063; 77067; 77080